=== PATIENT | male | born 1960 | race Caucasian/White ===

== ENCOUNTER 2018-01-11 13:28 | Outpatient (CLI) | payer BC, SELFPAY ==
[2018-01-11 14:58] LABS: ALT 40 U/L (12-78); LDL CHOLESTEROL 104 mg/dL (<100)
[2018-01-12 16:30] LABS: Kit/Specimen SENT
[2018-01-14 14:59] LABS: Fecal Immunochemical Test Negative (Negative)
== END 2018-01-11 13:48 ==
PROVIDERS: PCP Nurse Practitioner; Visit Provider Nurse Practitioner
DX: E78.00 Pure hypercholesterolemia, unspecified (principal)
CPT/HCPCS: 36415; 83721; 82274; 84460

== ENCOUNTER 2019-06-19 02:34 | Outpatient (CLI) | payer BC, SELFPAY ==
[2019-06-19 12:50] LABS: ALT 46 U/L (16-63); AST 28 U/L (15-37); Albumin 4.4 g/dL (3.4-5.0); Alkaline Phosphatase 98 U/L (46-116); Anion Gap 9.2 mmol/L (3-11); BUN 26 mg/dL (7-18); Bilirubin, Total 0.5 mg/dL (0.2-1.0); CO2 28.8 mmol/L (21.0-32.0); CREATININE 1.09 mg/dL (0.70-1.30); Calcium 8.9 mg/dL (8.5-10.1); Calculated LDL 132 mg/dL (<100); Chloride 102 mmol/L (98-107); Cholesterol 211 mg/dL (<200); Glucose 115 mg/dL (74-106); HDL Cholesterol 45 mg/dL (40-60); Potassium 4.8 mmol/L (3.5-5.1); Sodium 140 mmol/L (136-145); Total Protein 7.7 g/dL (6.4-8.2); Triglyceride 170 mg/dL (<150)
== END 2019-06-19 02:54 ==
PROVIDERS: PCP Nurse Practitioner; Visit Provider Nurse Practitioner
DX: E78.00 Pure hypercholesterolemia, unspecified (principal)
CPT/HCPCS: 36415; 80053; 80061

== ENCOUNTER 2020-02-27 21:37 | Outpatient (REF) | payer BC, SELFPAY ==
[2020-02-27 18:34] LABS: ALT 44 U/L (16-63); AST 20 U/L (15-37); Albumin 4.7 g/dL (3.4-5.0); Alkaline Phosphatase 98 U/L (46-116); Anion Gap 5.9 mmol/L (3-11); BUN 28 mg/dL (7-18); Bilirubin, Total 0.5 mg/dL (0.2-1.0); CO2 29.1 mmol/L (21.0-32.0); CREATININE 1.14 mg/dL (0.70-1.30); Calcium 9.2 mg/dL (8.5-10.1); Calculated LDL 101 mg/dL (<100); Chloride 102 mmol/L (98-107); Cholesterol 175 mg/dL (<200); Glucose 120 mg/dL (74-106); HDL Cholesterol 46 mg/dL (40-60); Potassium 4.4 mmol/L (3.5-5.1); Sodium 137 mmol/L (136-145); Total Protein 7.7 g/dL (6.4-8.2); Triglyceride 140 mg/dL (<150)
[2020-03-01 10:35] LABS: PSA, Diagnostic 0.6 ng/mL (0.0-3.5)
== END 2020-02-27 21:57 ==
LOC: NCHCN 21:37
PROVIDERS: Visit Provider Physician Assistant
DX: E78.5 Hyperlipidemia, unspecified (principal); Z12.5 Encounter for screening for malignant neoplasm of prostate
CPT/HCPCS: 80053; 80061; 84153

== ENCOUNTER 2021-04-15 15:08 | Outpatient (REF) | payer BC, SELFPAY ==
[2021-04-15 16:08] LABS: ALT 37 U/L (16-63); AST 19 U/L (15-37); Albumin 4.6 g/dL (3.4-5.0); Alkaline Phosphatase 93 U/L (46-116); Anion Gap 8.6 mmol/L (3-11); BUN 28 mg/dL (7-18); Bilirubin, Total 0.4 mg/dL (0.2-1.0); CO2 28.4 mmol/L (21.0-32.0); Calcium 9.4 mg/dL (8.5-10.1); Calculated LDL 79 mg/dL (<100); Chloride 102 mmol/L (98-107); Cholesterol 148 mg/dL (<200); Glucose 105 mg/dL (74-106); HDL Cholesterol 50 mg/dL (40-60); Potassium 4.5 mmol/L (3.5-5.1); Sodium 139 mmol/L (136-145); Total Protein 7.8 g/dL (6.4-8.2); Triglyceride 96 mg/dL (<150)
[2021-04-15 21:57] LABS: PSA, Screening 0.8 ng/mL (0.0-3.5)
== END 2021-04-15 15:09 | disposition home or self-care (01) ==
LOC: NCHCN 15:08
PROVIDERS: Visit Provider Physician Assistant
DX: Z00.00 Encounter for general adult medical examination without abnormal findings (principal); E78.5 Hyperlipidemia, unspecified; Z12.5 Encounter for screening for malignant neoplasm of prostate
CPT/HCPCS: 80053; 80061; 84153

== ENCOUNTER 2022-03-24 15:25 | Outpatient (REF) | payer BC, SELFPAY ==
[2022-03-24 16:05] LABS: ALT 36 U/L (16-63); AST 23 U/L (15-37); Albumin 4.5 g/dL (3.4-5.0); Alkaline Phosphatase 99 U/L (46-116); Anion Gap 7.4 mmol/L (3-11); BUN 21 mg/dL (7-18); Bilirubin, Total 0.5 mg/dL (0.2-1.0); CO2 28.6 mmol/L (21.0-32.0); Calcium 9.1 mg/dL (8.5-10.1); Calculated LDL 84 mg/dL (<100); Chloride 104 mmol/L (98-107); Cholesterol 160 mg/dL (<200); Estimated GFR 86.16 (mL/min/1.73m2); Glucose 99 mg/dL (74-106); HDL Cholesterol 47 mg/dL (40-60); Potassium 4.4 mmol/L (3.5-5.1); Sodium 140 mmol/L (136-145); Total Protein 7.6 g/dL (6.4-8.2); Triglyceride 146 mg/dL (<150)
[2022-03-24 23:13] LABS: PSA, Screening 0.8 ng/mL (<=4.5)
== END 2022-03-24 15:26 | disposition home or self-care (01) ==
LOC: NCHCN 15:25
PROVIDERS: Visit Provider Physician Assistant
DX: E78.5 Hyperlipidemia, unspecified (principal); Z12.5 Encounter for screening for malignant neoplasm of prostate
CPT/HCPCS: 80053; 80061; 84153

== ENCOUNTER 2025-01-14 01:23 | Outpatient (CLI) | payer BC, SELFPAY ==
--- NOTE | 2025-01-14 07:30 | DI.US_ITS ---
APPROVED REPORT EXAM: Comprehensive 2D, Doppler, and color-flow Echocardiogram Patient Location: Out-Patient Solar Project Engineer: Lucy Santiago RDCS (AE) Indications: Heart murmur systolic Other Information Study Quality: Good Conclusion Normal left ventricular wall thickness and chamber size. Ejection fraction is 60%. Wall motion is normal Normal right ventricular size and function Both atria are normal in size The aortic valve is trileaflet and sclerotic without stenosis or regurgitation. There is no additional significant valvular disease noted Wall motion Left Ventricle The left ventricle is normal size. The left ventricular systolic function is normal. The left ventricular ejection fraction is within the normal range. There is normal left ventricular wall thickness. There is normal LV segmental wall motion. There is no ventricular septal defect visualized. LVEF is 60%. Right Ventricle The right ventricle is normal size. The right ventricular systolic function is normal. Atria The left atrium size is normal. The right atrium size is normal. The interatrial septum is intact with no evidence for an atrial septal defect. Aortic Valve The Aortic valve is sclerotic. Aortic valve is trileaflet. No hemodynamically significant valvular aortic stenosis. No aortic regurgitation is present. Mitral Valve The mitral valve is normal in structure. No evidence of mitral valve stenosis. Trace mitral regurgitation. Tricuspid Valve The tricuspid valve is normal in structure. There is no tricuspid valve stenosis. Trace tricuspid regurgitation. Unable to assess PA pressure. Pulmonic Valve The pulmonary valve is normal in structure. There is no pulmonic valvular stenosis. Trace pulmonic regurgitation. Great Vessels The aortic root is normal in size. The ascending aorta is normal in size. Aortic arch is normal in caliber. IVC is normal in size and collapses >50% with inspiration. Pericardium There is no pericardial effusion. 2D Dimensions IVSD d PLAX 0.80 cm M: 0.6-1.2 Ao Root d 3.32 cm M: 3.1 - 3.7 LVPW d PLAX 0.84 cm M: 0.6 - 1.2 Ao Asc Diam d 3.40 cm M: 2.6 - 3.4 LVID d PLAX 4.10 cm M: 4.2 - 5.8 LVDs 2.79 cm M: 2.5 - 4.0 LV EF Teichholz 60.3 % FS 31.78 % LV EDV (Teich) 73.9 mL LV ESV (Teich) 29.3 mL M-Mode TAPSE 2.48 cm (M/F) >1.7 Auto EF LV EDV A4C 117.3 mL LV EDV A2C 131.5 mL LV EDV BP 123.2 mL LV ESV A4C 47.1 mL LV ESV A2C 53.1 mL LV ESV BP 49.1 mL LVEF(%) A4C 59.9 % LVEF(%) A2C 59.6 % LVEF(%) BP 60.2 % LV SV A4C 70.2 ml LV SV A2C 78.4 ml LV SV BP 74.1 ml LV CO A4C 5.4 L/min LV CO A2C 5.2 L/min LV CO BP 5.3 L/min HR A4C 76.76 BPM HR A2C 66.43 BPM LV EDV Index (BP) LA Volume LA Length A4C 4.8 cm LA Length A2C 4.4 cm LA Area A4C s 14.12 cm2 LA Area A2C s 15.64 cm2 LA Vol A4C A-L 35.60 mL LA Vol A2C A-L 46.94 mL LA Vol Biplane A-L 42.4 mL LA Vol/BSA A4C A-L LA Vol/BSA A2C A-L LA Vol/BSA BP A-L 23.0 mL/m2 LA Vol A4C MOD 32.7 mL LA Vol A2C MOD 44.3 mL LA Vol BP MOD 39.4 mL RA Volume RA Area A4C 8.9 cm2 RA ESV A4C (A-L) 16.4mL RA Vol/BSA A4C A-L RA Length A4C 4.1 cm RA ESV A4C (MOD) 15.7mL LV Diastology MV E' medial 0.088 (>0.07 m/s) MV E Vmax 0.78 (0.4-1.3 m/s) MV E/E' MED 8.78 (<14) MV A Vmax 0.85 (0.4-1.3 m/s) MV E' lateral 0.165 (>0.1 m/s) E/A Ratio 0.9 MV E/E' LAT 4.71 (<14) MV E' Average 0.126 m/s MV E/E'(average) 6.14 Aortic Valve AoV Vmax 2.13 m/s LVOT Vmax 1.18 m/s AoV Peak Grad 18.1 mmHg LVOT Peak Grad 5.5 mmHg AoV Area (Vmax) 1.82 cm2 LVOT VTI 0.252 m AoV VTI 0.424 m LVOT Mean Grad 3.4 mmHg AoV Mean Tobias. 1.47 m/s LVOT SV 82.93 mL AoV Mean Grad 9.8 mmHg LVOT Diam s 2.00 cm AoV Area (VTI) 1.95 cm2 AV Regurg Peak Gr. 18.14 mmHg Velocity Ratio 0.55 Mitral Valve MV DT 225 (160-240 msec) MV Vmax TIPS 0.90 m/s MV Mean Grad 1.5 (<2mmHg) MV VTI 0.236 m Pulmonary Valve PV Vmax 1.58 (0.5-1.5 m/s) RVOT Vmax 0.54 m/s PV Peak Grad 10.0 mmHg RVOT Peak Gr. 1.2 mmHg PV Mean Tobias 0.93 m/s RVOT VTI 0.119 m PV Mean Grad 4.2 mmHg RVOT Mean Gr. 0.8 mmHg Tricuspid Valve TV S' 0.14 m/s
== END 2025-01-14 01:43 ==
PROVIDERS: Visit Provider Physician Assistant
DX: R01.1 Cardiac murmur, unspecified (principal)
CPT/HCPCS: 93306